=== PATIENT | female | born 1995 | race Caucasian/White ===

== ENCOUNTER 2024-08-27 01:49 | Emergency (ER) | payer MEDICAID ==
[~2024-08-27] VITALS: Ht 162.6 cm; Wt 88.2 kg
[2024-08-27] MEDS: normal saline 1000ML IV soln IVB ONE ×2 (02:46→04:35)
[2024-08-27] MEDS: haloperidol lactate 5mg/ml inj IM ONE (02:48)
[2024-08-27 02:59] LABS: BASOPHILS # (AUTO) 0.1 X10'3 (0-0.2); BASOPHILS % (AUTO) 0.4 % (0-1); EOSINOPHILS % (AUTO) 0.1 % (0-6); HEMATOCRIT 42.1 % (35.0-45.0); HEMOGLOBIN 14.9 g/dl (12.0-16.0); LYMPHOCYTES # (AUTO) 2.4 X10'3 (1.1-4.8); MEAN CORPUSCULAR HEMOGLOBIN 31.5 PG (27.0-31.0); MEAN CORPUSCULAR HGB CONC 35.3 g/dL (33.0-36.5); MEAN CORPUSCULAR VOLUME 89.3 FL (78-98); MEAN PLATELET VOLUME 9.4 FL (7.4-10.4); MONOCYTES # (AUTO) 0.9 X10'3 (0-0.9); MONOCYTES % (AUTO) 5.4 % (2-12); NEUTROPHILS # (AUTO) 12.6 X10'3 (1.8-7.7); NEUTROPHILS % (AUTO) 79.1 % (42-75); PLATELET COUNT 310 X10'3 (140-440); RED BLOOD COUNT 4.71 X10'6 (4.20-5.60)
[2024-08-27 03:11] LABS: ALANINE AMINOTRANSFERASE 25 U/L (12-78); ALBUMIN 4.4 G/DL (3.4-5.0); ALBUMIN/GLOBULIN RATIO 1.1 (1.1-1.5); ALKALINE PHOSPHATASE 86 IU/L (46-116); ANION GAP 12 (8-16); ASPARTATE AMINO TRANSFERASE 30 U/L (10-37); BILIRUBIN,TOTAL 0.6 MG/DL (0.1-1.0); BLOOD UREA NITROGEN 13 MG/DL (7-18); BUN/CREATININE RATIO 16.5 (10.0-20.0); CALCIUM 9.6 MG/DL (8.5-10.1); CHLORIDE 102 MMOL/L (99-107); CREATININE 0.79 MG/DL (0.40-0.90); GLUCOSE 127 MG/DL (70-104); LIPASE 38 U/L (16-77); POTASSIUM 3.5 MMOL/L (3.5-5.1); SODIUM 137 MMOL/L (135-145); TOTAL CARBON DIOXIDE 22.9 MMOL/L (24-32); TOTAL PROTEIN 8.3 G/DL (6.4-8.2); eCRCL 92 ML/MIN; eGFR 87 ML/MIN
--- NOTE | 2024-08-27 04:08 | Physician Documentation ---
History of Present Illness Chief Complaint: Abdominal Pain w/vomiting Stated Complaint: VOMITTING/DEHYDRATION Time Seen by MD: 04:05 OK to notify your PCP?: Yes Source: patient, RN/MD, RN notes reviewed, old records Mode of Arrival: Ambulatory Exam Limitations: no limitations HPI 28 year old female, with a history of daily marijuana use, presents complaining of persistent nausea/vomiting and diffuse abdominal pain for the last 24 hours. Symptoms increased this evening, prompting her to visit the ED. Patient reports a history of the same symptoms multiple times in the past. Initially patient was refusing blood draw and stating that she only needed IV medications. Later she reported to her nurse that she believes she has a urinary tract infection due to nonspecific urinary symptoms. Medication Reconciliation Allergies: Coded Allergies: No Known Allergies (Unverified , 08/27/24) Past Medical History Past Medical History: *GI/HEPATOBILIARY* Past Surgical History: no surgical history Drug Use: marijuana Lives In: Home Review of Systems All Other Systems at this time: Reviewed and Negative ROS Nausea/vomiting as well as other positive symptoms noted in the HPI. Otherwise all other systems are reviewed and negative. Physical Exam Vital Signs: RN Vital Signs have been reviewed: Yes, Temperature: 98.8, Source: Oral, Heart Rate: 93, Respiratory Rate: 18, BP: 125/85, Pulse Oximetry: 97, Weight: 88.180 Oxygen Flow Rate: 0 Pulse Oximetry Reflects: adequate oxygenation Physical Exam General: The patient is well developed, well nourished, nontoxic appearing and is mild distress, uncomfortable appearing. Skin: [place], warm and dry with no rashes. HEENT: Head was normocephalic and atraumatic. Chest: Clear to auscultation bilaterally without wheezes, rales or rhonchi. No accessory muscle use. No dullness to percussion. Heart: Rate regular and rhythmic. S1, S2. No murmurs. Palpation of the chest wall was normal. No rubs or thrills. Abdomen: Soft, epigastric tenderness and nondistended. Positive bowel sounds. No guarding or rebound. Extremities: No cyanosis, clubbing or edema. The patient moves all extremities. Pulses were equal and symmetric. Neurologic: Motor and sensation grossly intact. Cranial nerves II-XII grossly intact. A & O x4. Psychologic: Normal mood and affect. No agitation. Progress Progress Note 0425: Re-evaluation: Patient greatly improved after medications. Still complaining of some pain and requesting additional medications, and then to be discharged. Results/Orders Reviewed/noted all lab results: Yes Results/Orders Orders - GREY GEORGE MD Urinalysis, Cult If Indicated (08/27/24 01:57) Hcg, Ur Ql (08/27/24 01:57) Drug Screen, Urine (08/27/24 01:57) MG (08/27/24 04:07) Completed Orders - GREY GEORGE MD Cbc/Diff (08/27/24 01:57) BMP (08/27/24 01:57) Lipase (08/27/24 01:57) CMP (08/27/24 01:57) Normal Saline 1000ml (Sodium Chloride 10 (08/27/24 02:30) Haloperidol Lact. (Haldol) (08/27/24 02:30) Medications Received in ER Medications (Trade) Dose Ordered Sig/Lorene Route PRN Reason Start Time Stop Time Status Last Admin Dose Admin (sodium chloride 1000ml IV soln) 1,000 ml ONCE ONCE IVB 08/27/24 02:30 08/27/24 02:31 DC 08/27/24 02:46 1,000 ML (Haldol) 5 mg ONCE ONCE IM 08/27/24 02:30 08/27/24 02:31 DC 08/27/24 02:48 5 MG Vital Signs 08/27/24 08/27/24 01:52 02:13 Temp 98.8 Pulse 93 Resp 17 18 B/P (MAP) 125/85 Pulse Ox 97 O2 Flow Rate 0 Laboratory Tests Test 08/27/24 02:39 White Blood Count 16.0 H Red Blood Count 4.71 Hemoglobin 14.9 Hematocrit 42.1 Mean Corpuscular Volume 89.3 Mean Corpuscular Hemoglobin 31.5 H Mean Corpuscular Hemoglobin Concent 35.3 Red Cell Distribution Width 13.0 Platelet Count 310 Mean Platelet Volume 9.4 Neutrophils (%) (Auto) 79.1 H Lymphocytes (%) (Auto) 15.0 L Monocytes (%) (Auto) 5.4 Eosinophils (%) (Auto) 0.1 Basophils (%) (Auto) 0.4 Neutrophils # (Auto) 12.6 H Lymphocytes # (Auto) 2.4 Monocytes # (Auto) 0.9 Eosinophils # (Auto) 0.0 Basophils # (Auto) 0.1 CBC Comment Sodium Level 137 Potassium Level 3.5 Chloride Level 102 Carbon Dioxide Level 22.9 L Anion Gap 12 Blood Urea Nitrogen 13 Creatinine 0.79 Estimated GFR/1.73 m2 87 BUN/Creatinine Ratio 16.5 Glucose Level 127 H Calcium Level 9.6 Total Bilirubin 0.6 Aspartate Amino Transf (AST/SGOT) 30 Alanine Aminotransferase (ALT/SGPT) 25 Alkaline Phosphatase 86 Total Protein 8.3 H Albumin 4.4 Globulin 3.9 Albumin/Globulin Ratio 1.1 Lipase 38 Chemistry Comments Re-Evaluation Re-Evaluation : Re-Evaluation: Improved Progress Patient was seen and examined. Patient was given reassurance the patient was hydrated. She had a very loud explosive vomiting consistent with marijuana use and vomiting. Patient received Haldol. Fluids in his now feeling much better afterwards some Zofran Toradol for pain was given additional fluids and ul timately received 3 L total because of her dehydration. He was concerned about a UTI however urine is contaminated there appears to be no urinary infection. Patient was then discharged home to follow up with their physician. They are given reassurance but most importantly encouraged to stopped smoking marijuana however patient does not seem interested in the solution. Medical Decision Making Additional info obtained from: old records Differential Dx:Considerations: Include: Esophagitis, Gastritis/PUD, Gastroenteritis, Hepatitis, Inflammatory BD, Ischemic bowel, Pancreatitis, Urinary obstruction, Urinary tract infection, Urolithiasis, Other Departure Disposition: 01 HOME / SELF CARE / HOMELESS Impression: Primary Impression: Cannabinoid hyperemesis syndrome Additional Impression: Cocaine abuse Discharge Instructions: Cannabinoid Hyperemesis Syndrome Additional Instructions: Stop all marijuana use. You may have to stop for 4-6 months before symptoms do not return. Return to the ER for new or worsening symptoms or other concerns. Education Educated: Patient Educated regarding: diagnosis, treatment, need for follow up Signature Scribe Signature: Scribed for Grey George MD by Tavon Muñoz . 08/27/24 04:32 Attestation: The note accurately reflects work and decisions made by me.Grey George MD 08/27/24 04:08 GREY GEORGE MD August 27, 2024 04:08 TAVON HAYES August 27, 2024 04:34
[2024-08-27 04:20] LABS: MAGNESIUM 1.8 MG/DL (1.5-2.4)
[2024-08-27] MEDS: ketorolac trometh 15mg/ml vial 15 MG/ML ML IV ONE (04:35)
[2024-08-27] MEDS: ondansetron/PF 4mg/2ml inj IV ONE (04:35)
[2024-08-27 06:10] LABS: BILIRUBIN,URINE SMALL (Neg); CLARITY,URINE SLIGHTLY CLOUDY (Clear); COLOR,URINE YELLOW (Yellow); GLUCOSE, URINE NEGATIVE (Neg); KETONES,URINE >=80 mg/dl (Neg); LEUKOCYTE ESTERASE ,URINE TRACE (Neg); NITRITES, URINE NEGATIVE (Neg); OCCULT BLOOD,URINE NEGATIVE (Neg); PROTEIN,URINE 100 mg/dl (Neg)
[2024-08-27 06:17] LABS: UA COLLECTION TYPE CLN CATCH MIDSTREAM
[2024-08-27 06:21] LABS: BACTERIA,URINE 1+ /HPF (Neg); MUCUS STRANDS MANY /LPF (Neg); RBC,URINE NONE SEEN /HPF (0-2); SQUAMOUS EPITHELIAL CELL,UR MANY /LPF (FEW)
[2024-08-27] MEDS: ringers solution, lacted 1,000 ML IV ONE (06:24)
[2024-08-27 06:59] LABS: URINE AMPHETAMINE SCREEN NEGATIVE (Neg); URINE BARBITUATE SCREEN NEGATIVE (Neg); URINE BENZODIAZEPINES SCREEN NEGATIVE (Neg); URINE CANNABINOID SCREEN POSITIVE (Neg); URINE COCAINE SCREEN POSITIVE (Neg); URINE METHADONE SCREEN NEGATIVE (Neg); URINE OPIATE SCREEN NEGATIVE (Neg); URINE PHENCYCLIDINE SCREEN NEGATIVE (Neg)
[2024-08-27 07:05] LABS: URINE HCG NEGATIVE (NEG)
[2024-08-27 08:04] VITALS: BP 130/85; PULSE 78; RESP 18; TEMP 98.8; O2SAT 99
== END 2024-08-27 08:06 | disposition home or self-care (01) ==
LOC: ER 01:50
DX: R11.10 Vomiting, unspecified (principal); F12.90 Cannabis use, unspecified, uncomplicated; F14.10 Cocaine abuse, uncomplicated; E86.0 Dehydration
CPT/HCPCS: 36415; 80053; 80305; 81001; 81025; 83690; 83735; 85025; 96361; 96372; 96374; 96375; 99285; J1630; J1885; J2405; J7030; J7120

== ENCOUNTER 2024-10-16 03:04 | Emergency (ER) | payer MEDICAID ==
[~2024-10-16] VITALS: Ht 162.6 cm; Wt 81.3 kg
[2024-10-16] MEDS: ondansetron/PF 4mg/2ml inj IV ONE ×2 (03:42→04:12)
[2024-10-16 04:02] LABS: ALBUMIN 4.2 G/DL (3.4-5.0); ANION GAP 14 (8-16); BLOOD UREA NITROGEN 11 MG/DL (7-18); BUN/CREATININE RATIO 13.8 (10.0-20.0); CHLORIDE 104 MMOL/L (99-107); GLUCOSE 128 MG/DL (70-104); POTASSIUM 3.5 MMOL/L (3.5-5.1); SODIUM 142 MMOL/L (135-145); TOTAL CARBON DIOXIDE 23.8 MMOL/L (24-32); eCRCL 90 ML/MIN; eGFR 85 ML/MIN
[2024-10-16 04:06] LABS: BASOPHILS # (AUTO) 0.1 X10'3 (0-0.2); BASOPHILS % (AUTO) 0.5 % (0-1); EOSINOPHILS % (AUTO) 0.1 % (0-6); HEMATOCRIT 41.5 % (35.0-45.0); HEMOGLOBIN 14.3 g/dl (12.0-16.0); LYMPHOCYTES # (AUTO) 2.3 X10'3 (1.1-4.8); LYMPHOCYTES % (AUTO) 21.3 % (21-51); MEAN CORPUSCULAR HEMOGLOBIN 31.2 PG (27.0-31.0); MEAN CORPUSCULAR HGB CONC 34.5 g/dL (33.0-36.5); MEAN CORPUSCULAR VOLUME 90.3 FL (78-98); MEAN PLATELET VOLUME 8.9 FL (7.4-10.4); MONOCYTES # (AUTO) 0.7 X10'3 (0-0.9); MONOCYTES % (AUTO) 6.8 % (2-12); NEUTROPHILS # (AUTO) 7.6 X10'3 (1.8-7.7); NEUTROPHILS % (AUTO) 71.3 % (42-75); PLATELET COUNT 273 X10'3 (140-440); RED CELL DISTRIBUTION WIDTH 13.1 % (11.5-14.5); WHITE BLOOD COUNT 10.7 X10'3 (4.5-11.0)
[2024-10-16] MEDS: metoclopramide 5 mg/ml inj IV ONE (04:12)
[2024-10-16] MEDS: diphenhydrAMINE 50 mg/ml inj IV ONE (04:12)
[2024-10-16] MEDS: normal saline 1000ml 1,000 ML IV ONE ×2 (04:13→05:39)
--- NOTE | 2024-10-16 04:13 | Physician Documentation ---
History of Present Illness ~ Chief Complaint: Vomiting Stated Complaint: VOMITING Time Seen by MD: 04:05 Mode of Arrival: POV, Ambulatory HPI Patient presents to the emergency room with vomiting x2 hours. She has been seen here before and was told that it was due to cannabis but she disagrees. She states she has history of ulcers. Medication Reconciliation Allergies: Coded Allergies: No Known Allergies (Unverified , 10/16/24) Scheduled Ondansetron 8mg ODT (Ondansetron Odt), 1 TAB PO Q6H Pantoprazole Sodium (PROTONIX tablet), 1 TAB PO DAILY Past Medical History Past Medical History: *GI/HEPATOBILIARY* Past Surgical History: no surgical history Drug Use: marijuana Lives In: Home Review of Systems ROS All review of systems negative except as per HPI Physical Exam Vital Signs: Temperature: 97.8, Source: Temporal, Heart Rate: 95, Respiratory Rate: 16, BP: 142/90, Pulse Oximetry: 98, Weight: 81.300 Oxygen Flow Rate: 0 Physical Exam General: Patient is awake, alert, oriented x4 in moderate distress, actively scream-vomiting Head: Normocephalic and atraumatic. Eyes: Conjunctival normal. EOMI. PERRL. ENT: Mucous membranes moist. Neck: Supple, trachea is midline. Chest: Clear to auscultation bilaterally without rales, rhonchi, or wheezes. There is no accessory muscle use or retractions. Cardiac: RRR without murmurs, gallops, or rubs. Abd: Soft, nondistended, diffuse abdominal tenderness Progress Results/Orders Results/Orders Completed Orders - MICHAEL PARKER MD Cbc/Diff (10/16/24 03:35) BMP (10/16/24 03:35) Ondansetron Inj. (Zofran 4mg/2ml Vial) (10/16/24 03:40) Ondansetron Inj. (Zofran 4mg/2ml Vial) (10/16/24 04:05) Diphenhydramine Inj (Benadryl Inj.) (10/16/24 04:05) Metoclopramide Inj (Reglan Inj) (10/16/24 04:05) Normal Saline 1000ml (Sodium Chloride 10 (10/16/24 04:05) Haloperidol Lact. (Haldol) (10/16/24 04:10) Famotidine/Pf Iv Inj (Pepcid Iv Inj) (10/16/24 04:10) Pantoprazole 40mg Iv (Protonix 40mg Iv) (10/16/24 04:10) Hcg Serum Ql (10/16/24 04:10) Ua W/Microscopic, Cult If Ind (10/16/24 04:30) Normal Saline 1000ml (Sodium Chloride 10 (10/16/24 05:30) Prochlorperazine Inj (Compazine Inj) (10/16/24 05:30) Vital Signs 10/16/24 10/16/24 10/16/24 10/16/24 03:05 03:20 04:34 04:40 Temp 97.8 Pulse 95 75 56 Resp 18 16 20 16 B/P (MAP) 142/90 134/83 (100) Pulse Ox 98 99 99 O2 Flow Rate 0 10/16/24 10/16/24 10/16/24 10/16/24 05:00 05:35 06:10 06:29 Pulse 61 79 78 74 Resp 18 14 20 13 B/P (MAP) 129/90 (103) 147/85 (105) 117/74 (88) 139/96 (110) Pulse Ox 100 99 99 99 O2 Flow Rate 2.0 2.0 0 10/16/24 10/16/24 06:40 07:54 Temp 97.8 Pulse 74 Resp 20 B/P (MAP) 4/69 Pulse Ox 98 Laboratory Tests Test 10/16/24 03:32 10/16/24 03:51 10/16/24 04:30 CBC Comment Sodium Level 142 Potassium Level 3.5 Chloride Level 104 Carbon Dioxide Level 23.8 L Anion Gap 14 Blood Urea Nitrogen 11 Creatinine 0.80 Estimated GFR/1.73 m2 85 BUN/Creatinine Ratio 13.8 Glucose Level 128 H Calcium Level 9.0 Albumin 4.2 Human Chorionic Gonadotropin, Qual Negative Chemistry Comments White Blood Count 10.7 Red Blood Count 4.60 Hemoglobin 14.3 Hematocrit 41.5 Mean Corpuscular Volume 90.3 Mean Corpuscular Hemoglobin 31.2 H Mean Corpuscular Hemoglobin Concent 34.5 Red Cell Distribution Width 13.1 Platelet Count 273 Mean Platelet Volume 8.9 Neutrophils (%) (Auto) 71.3 Lymphocytes (%) (Auto) 21.3 Monocytes (%) (Auto) 6.8 Eosinophils (%) (Auto) 0.1 Basophils (%) (Auto) 0.5 Neutrophils # (Auto) 7.6 Lymphocytes # (Auto) 2.3 Monocytes # (Auto) 0.7 Eosinophils # (Auto) 0.0 Basophils # (Auto) 0.1 Urine Specimen Description Non-specified Urine Color Yellow Urine Clarity Turbid Urine pH 6.0 Urine Specific [place] >=1.030 Urine Protein Trace Urine Glucose (UA) Negative Urine Ketones Negative Urine Occult Blood Moderate H Urine Nitrite Negative Urine Bilirubin Negative Urine Urobilinogen 1.0 Urine Leukocyte Esterase Negative Urine RBC 0-2 Urine WBC 0-4 Urine Squamous Epithelial Cells Few Urine Amorphous Urates 3+ Urine Bacteria Few Urine Mucus Few Urine Culture Indicated Not ind Volume Urine Centrifuged 4 ml Urine Comment Low volume Medical Decision Making Findings Patient presents to the emergency room with 2 hour history of vomiting. Differentials include but are not limited to cyclic vomiting syndrome, g astritis, cholecystitis, dehydration, electrolyte disturbances therefore emergent labs ordered which were reassuring. Patient is responding to therapy. Signed out to me by Dr. Parker. Improved on reevaluation, will discharge with return precautions. Departure Disposition: HOME / SELF CARE / HOMELESS Impression: Primary Impression: Acute gastritis Condition: Improved Discharge Instructions: Nausea and Vomiting, Adult Referrals: NO PRIMARY CARE PROVIDER (PCP) Prescriptions Pantoprazole Sodium (PROTONIX tablet) 40 Mg Tablet.dr 1 TAB PO DAILY for 30 Days, #30 TAB 0 Refills Prov: MICHAEL PARKER MD 10/16/24 Ondansetron 8mg ODT (Ondansetron Odt) 8 Mg Tab.rapdis 1 TAB PO Q6H for nausea/vomiting for 3 Days, #12 TAB 0 Refills Prov: MICHAEL PARKER MD 10/16/24 Education Educated: Patient Educated regarding: diagnosis, treatment, need for follow up Signature Scribe Signature: No scribe Attestation: The note accurately reflects work and decisions made by me.Michael Parker MD 10/16/24 06:11 MICHAEL PARKER MD Oct 16, 2024 04:13 KIN PRYOR MD Oct 16, 2024 07:40
[2024-10-16] MEDS: pantoprazole 40 MG vial IV ONE (04:24)
[2024-10-16] MEDS: haloperidol lactate 5mg/ml inj IVH ONE (04:26)
[2024-10-16] MEDS: famotidine/PF 10 mg/ml inj IV ONE (04:29)
[2024-10-16 04:34] LABS: HCG SERUM QL NEGATIVE
[2024-10-16 04:47] LABS: BILIRUBIN,URINE NEGATIVE (Neg); CLARITY,URINE TURBID (Clear); COLOR,URINE YELLOW (Yellow); GLUCOSE, URINE NEGATIVE (Neg); KETONES,URINE NEGATIVE (Neg); LEUKOCYTE ESTERASE ,URINE NEGATIVE (Neg); NITRITES, URINE NEGATIVE (Neg); OCCULT BLOOD,URINE MODERATE (Neg); PROTEIN,URINE TRACE mg/dl (Neg)
[2024-10-16 04:49] LABS: UA COLLECTION TYPE NON-SPECIFIED
[2024-10-16 05:03] LABS: RBC,URINE 0-2 /HPF (0-2); WBC,URINE 0-4 /HPF (0-4)
[2024-10-16 05:04] LABS: AMORPHOUS URATES 3+; BACTERIA,URINE FEW /HPF (Neg); MUCUS STRANDS FEW /LPF (Neg); SQUAMOUS EPITHELIAL CELL,UR FEW /LPF (FEW)
[2024-10-16] MEDS: proCHLORperazine 10 MG/2 ml inj IV ONE (05:39)
[2024-10-16] MEDS ORDERED: ONDA-245 PO (06:11)
[2024-10-16] MEDS ORDERED: PANT-47 PO (06:11)
[2024-10-16 07:54] VITALS: BP 4/69; PULSE 74; RESP 20; TEMP 97.8; O2SAT 98
== END 2024-10-16 07:50 | disposition home or self-care (01) ==
LOC: ER 03:04
DX: K29.00 Acute gastritis without bleeding (principal); F12.90 Cannabis use, unspecified, uncomplicated; Z79.899 Other long term (current) drug therapy
CPT/HCPCS: 36415; 80048; 81001; 84703; 85025; 96361; 96374; 96375; 99285; J0780; J1200; J1630; J2405; J2470; J2765; J3490; J7030